=== PATIENT | female | born 1980 | race Caucasian/White ===

== ENCOUNTER 2019-08-08 07:13 | Day surgery (SDC) | payer OTHER ==
[~2019-08-08 07:13] MED LIST: Dexamethasone 4 MG/ML 5 ML MDV ONE; Midazolam 1 MG/ML 2 ML SDV ONE; Ondansetron 4 MG/2 ML SDV ONE; Propofol 200 MG/20 ML SDV ONE; Sodium Chloride 0.9% 10 ML SDV IV PRN; Sodium Chloride 0.9% 10 ML Syringe FLUSH PRN; Sodium Chloride 0.9% 2.5 ML Syringe FLUSH PRN; fentaNYL 250 MCG/5 ML SDV ONE
[2019-08-08] MEDS ORDERED: fentaNYL 100 MCG/2 ML SDV IVPUSH PRN (07:15)
--- NOTE | 2019-08-08 07:48 | PCM.PREANE ---
Preanesthetic Assessment - Anesthesia/Transfusion/Family Hx Anesthesia History: Prior Anesthesia Without Reaction Family History of Anesthesia Reaction: No Transfusion History: No Prior Transfusion(s) Intubation History: Unknown - Review of Systems General: No Symptoms Pulmonary: No Symptoms Cardiovascular: No Symptoms Gastrointestinal: No Symptoms Neurological: No Symptoms Other: Reports: None - Physical Assessment Height: 5 ft 8.5 in Weight: 65.771 kg ASA Class: 2 Mental Status: Alert & Oriented x3 Airway Class: Mallampati = 1 Dentition: Reports: Normal Dentition Thyro-Mental Finger Breadths: 3 Mouth Opening Finger Breadths: 3 ROM/Head Extension: Full Lungs: Clear to Auscultation, Normal Respiratory Effort Cardiovascular: Regular Rate, Regular Rhythm - Allergies Allergies/Adverse Reactions: Allergies Allergy/AdvReac Type Severity Reaction Status Date / Time No Known Allergies Allergy Verified 08/05/19 16:55 - Blood Blood Available: No - Anesthesia Plan Pre-Op Medication Ordered: None - Acknowledgements Anesthesia Type Planned: MAC Pt an Appropriate Candidate for the Planned Anesthesia: Yes Alternatives and Risks of Anesthesia Discussed w Pt/Guardian: Yes Pt/Guardian Understands and Agrees with Anesthesia Plan: Yes PreAnesthesia Questionnaire HEENT History: Reports: Other (See Below) Other HEENT History: wears glasses/contacts Genitourinary History: Reports: None [employer]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 , , Spontaneous Musculoskeletal History: Reports: Fracture Other Musculoskeletal History: hx of fx ankle Neurological History: Reports: Seizure Other Neuro History: had seixures in Middle school- took medication then but has not taken now for several years Psychiatric History: Reports: Anxiety Other Psychiatric History: does not take any medication - Past Surgical History Head Surgeries/Procedures: Reports: None HEENT Surgical History: Reports: Oral Surgery Other HEENT Surgeries/Procedures: wisdom teeth removed Female Surgical History: Reports: Salpingo-Oophorectomy, Other (See Below) Other Female Surgeries/Procedures: Laparotomy Left S&O - SUBSTANCE USE Smoking Status *Q: Former Smoker Tobacco Use Within Last Twelve Months: No Recreational Drug Use History: No - HOME MEDS Home Medications: Home Meds . [No Known Home Meds] 02/20/15 [History] - CURRENT (IN HOUSE) MEDS Current Meds: Current Medications Fentanyl (Sublimaze) 50 mcg IVPUSH Q5M PRN PRN Reason: Pain (severe 7-10) Stop: 08/08/19 11:00 Sodium Chloride (Saline Flush) 10 ml FLUSH ASDIRECTED PRN PRN Reason: Keep Vein Open Sodium Chloride (Saline Flush) 2.5 ml FLUSH ASDIRECTED PRN PRN Reason: Keep Vein Open Sodium Chloride (Normal Saline) 10 ml IV ASDIRECTED PRN PRN Reason: IV Use Discontinued Medications Dexamethasone (Dexamethasone) Confirm Administered Dose 20 mg .ROUTE .STK-MED ONE Stop: 08/08/19 06:46 Fentanyl (Sublimaze) Confirm Administered Dose 250 mcg .ROUTE .STK-MED ONE Stop: 08/08/19 06:46 Lidocaine HCl (Xylocaine-Mpf 1%) Confirm Administered Dose 5 ml .ROUTE .STK-MED ONE Stop: 08/08/19 06:46 Midazolam HCl (Versed 1 Mg/Ml) Confirm Administered Dose 2 mg .ROUTE .STK-MED ONE Stop: 08/08/19 06:46 Ondansetron HCl (Zofran) Confirm Administered Dose 4 mg .ROUTE .STK-MED ONE Stop: 08/08/19 06:46 Propofol (Diprivan 20 Ml) Confirm Administered Dose 200 mg .ROUTE .STK-MED ONE Stop: 08/08/19 06:45
[2019-08-08] MEDS ORDERED: Propofol 200 MG/20 ML SDV ONE (08:48)
[2019-08-08] MEDS ORDERED: Ketorolac 30 MG/ML SDV ONE (09:23)
[2019-08-08] MEDS ORDERED: Glycopyrrolate 0.2 MG/ML SDV ONE (09:24)
--- NOTE | 2019-08-08 09:40 | PCM.OPNOTE ---
- General Post-Op/Procedure Note Date of Surgery/Procedure: 08/08/19 Operative Procedure(s): LEEP of cervix Findings: ROBERT 2-3 Pre Op Diagnosis: ROBERT 2-3 Post-Op Diagnosis: Same Anesthesia Technique: Local, MAC Primary Surgeon: Analy Lyon Pathology: anterior and posterior lip of cervix Fluid Replacement, Intraop: 600 EBL in mLs: 10 Complications: none known Condition: Stable Free Text/Narrative:: Dictation [id number]
--- NOTE | 2019-08-08 10:11 | PCM.POSTAN ---
POST ANESTHESIA ASSESSMENT - MENTAL STATUS Mental Status: Alert - VITAL SIGNS Vital Signs: Last Vital Signs Temp 36.8 C 08/08/19 09:38 Pulse 96 08/08/19 10:04 Resp 15 08/08/19 10:04 BP 121/78 08/08/19 10:04 Pulse Ox 96 08/08/19 10:04 - RESPIRATORY Respiratory Status: Respiratory Rate WNL - CARDIOVASCULAR CV Status: Pulse Rate WNL - GASTROINTESTINAL GI Status: No Symptoms - POST OP HYDRATION Hydration Status: Adequate & Stable
--- NOTE | 2019-08-08 10:34 | PCM48HPAN ---
Post Anesthesia Note - EVALUATION WITHIN 48HRS OF ANESTHETIC Vital Signs in Normal Range: Yes Patient Participated in Evaluation: Yes Respiratory Function Stable: Yes Airway Patent: Yes Cardiovascular Function Stable: Yes Hydration Status Stable: Yes Pain Control Satisfactory: Yes Nausea and Vomiting Control Satisfactory: Yes Mental Status Recovered: Yes Vital Signs: Last Vital Signs Temp 36.8 C 08/08/19 09:38 Pulse 96 08/08/19 10:04 Resp 15 08/08/19 10:04 BP 121/78 08/08/19 10:04 Pulse Ox 96 08/08/19 10:04 - COMMENTS/OBSERVATIONS Free Text/Narrative:: No anesthesia problems
[2019-08-08 10:52] VITALS: BP 115/78; PULSE 64
--- NOTE | 2019-08-08 12:11 | OR ---
SURGEON: Analy Lyon M.D. DATE OF PROCEDURE: 08/08/2019 PREOPERATIVE DIAGNOSIS: Cervical intraepithelial neoplasia 2-3. POSTOPERATIVE DIAGNOSIS: Cervical intraepithelial neoplasia 2-3. PROCEDURE: Loop electrosurgical excision procedure of cervix. PRIMARY SURGEON: Analy Lyon MD. ANESTHESIA: MAC/local. ESTIMATED BLOOD LOSS: 10 mL. FLUIDS: 600 mL of crystalloid. COMPLICATIONS: None known. FINDINGS: ROBERT 2-3. DISPOSITION: The patient to PACU, stable. PROCEDURE DETAILS: Ana is a 39-year-old female who recently had colposcopy with biopsies, which revealed ROBERT 2-3 of the posterior lip of the cervix and the cervix had no dysplasia. Given these findings, I have advised proceeding with surgical intervention in the form of LEEP. Risks of the procedure have been discussed. Proper consent obtained. The patient was taken to the operating room where she underwent MAC anesthetic, was placed in modified dorsal lithotomy position, and was prepped. A time-out was performed. A coated speculum was introduced in the vagina as well as sidewall retractor. The cervix was prepped with Lugol solution followed by performing cervical block with 1% Xylocaine with epinephrine. Using a 20 x 8 mm loop, anterior lip of the cervix was now excised followed by the posterior lip. Given there was no dysplasia in the cervix, no further specimen of the endocervix was obtained as she was not sure if she has completed childbearing. The specimen would be sent to pathology. The wound bed was now cauterized with rollerball followed by placement of Monsel's. Hemostasis appeared evident. Instruments were removed from the vagina. Sponge and instrument count was correct. The patient has tolerated the procedure well overall. She will go to PACU in stable condition, specimens to pathology. KARYN / ANA /[id number]
== END 2019-08-08 10:52 | disposition home or self-care (01) ==
LOC: MW.SDS 07:13
PROVIDERS: ATTEND Obstetrics & Gynecology
DX: N87.1 Moderate cervical dysplasia (principal); Z87.891 Personal history of nicotine dependence
CPT/HCPCS: 36415; 57522; 84703; 85027; 88305; 88307; J1100; J1885; J2001; J2250; J2405; J2704; J3010; J3490; 00940

== ENCOUNTER 2022-08-09 08:27 | Emergency (ER) | payer OTHER, BC ==
[2022-08-09] MEDS ORDERED: Diphtheria,Pertussis(Acell),Tetanus Vaccine 0.5 ML Syringe IM ONE (08:39)
[2022-08-09 10:24] VITALS: BP 107/66; PULSE 61
== END 2022-08-09 10:25 | disposition home or self-care (01) ==
LOC: MW.ED 08:27
DX: S51.012A Laceration without foreign body of left elbow, initial encounter (principal); S70.12XA Contusion of left thigh, initial encounter; Z88.0 Allergy status to penicillin; Z88.2 Allergy status to sulfonamides; Z23 Encounter for immunization; V09.20XA Pedestrian injured in traffic accident involving unspecified motor vehicles, initial encounter; Y92.410 Unspecified street and highway as the place of occurrence of the external cause
CPT/HCPCS: 73552-26-LT; 73552-LT; 90471; 90715; 99283; 99284-25

== ENCOUNTER 2022-08-09 14:09 | Emergency (ER) | payer OTHER, BC ==
[2022-08-09 14:18] VITALS: BP 123/54; PULSE 71
[2022-08-09] MEDS ORDERED: Sodium Chloride 0.9% 20 ML SDV IV PRN (14:24)
[2022-08-09] MEDS ORDERED: Sodium Chloride 0.9% 2.5 ML Syringe FLUSH PRN (14:24)
[2022-08-09] MEDS ORDERED: Sodium Chloride 0.9% 10 ML Syringe FLUSH PRN (14:24)
[2022-08-09 15:18] LABS: CARBON DIOXIDE,CO2 28.7 mmol/L (21.0-32.0); POTASSIUM,K 4.3 mmol/L (3.5-5.1)
== END 2022-08-09 17:14 | disposition home or self-care (01) ==
LOC: MW.ED 14:09
DX: S00.83XA Contusion of other part of head, initial encounter (principal); Z88.0 Allergy status to penicillin; Z88.2 Allergy status to sulfonamides; V09.20XA Pedestrian injured in traffic accident involving unspecified motor vehicles, initial encounter; Y92.410 Unspecified street and highway as the place of occurrence of the external cause
CPT/HCPCS: 36415; 70450; 70450-26; 71045; 71045-26; 73562-26-RT; 73562-RT; 73590-26-RT; 73590-RT; 80053; 81025; 85027; 99283; 99284